=== PATIENT | male | born 2000 | race Two or more races ===

== ENCOUNTER 2024-08-26 19:17 | Emergency (ER) | payer OTHER ==
[~2024-08-26] VITALS: Ht 175.3 cm; Wt 57.2 kg
[2024-08-26] MEDS ORDERED: CEFTRIAXONE SODIUM 1,000 MG VIAL IM STA (20:12)
[2024-08-26] MEDS ORDERED: CEFTRIAXONE SODIUM 1,000 MG VIAL ONE (20:19)
== END 2024-08-26 20:43 | disposition home or self-care (01) ==
LOC: ER 19:18
DX: J03.90 Acute tonsillitis, unspecified (principal); Z91.013 Allergy to seafood